=== PATIENT | female | born 1990 | race Hispanic/Latino ===

== ENCOUNTER 2017-05-31 12:55 | Emergency (ER) | payer OTHER ==
--- NOTE | 2017-05-31 14:09 | RAD ---
RIGHT FOREARM RADIOGRAPHS TWO VIEWS: Date: 05-31-17 Provided Clinical History: Right forearm pain. FINDINGS: There is no evidence of fracture or other acute osseous abnormality. If there is persistent clinical concern, conservative management and follow up imaging are advised. IMPRESSION: As above. POS: [facility]
--- NOTE | 2017-05-31 14:11 | RAD ---
RIGHT SHOULDER RADIOGRAPHS THREE VIEWS: Date: 05-31-17 Provided Clinical History: Right shoulder pain. FINDINGS: No evidence for fracture or other acute osseous abnormality. Subacromial space appears preserved. Acr omioclavicular and coracoclavicular distances appear normal. Visualized right lung field appears isabel r. The glenohumeral relationship appears normal. IMPRESSION: No evidence for acute osseous abnormality. If there is persistent clinical concern, conservative humza gement and follow up imaging are advised. POS: [facility]
== END 2017-05-31 14:55 | disposition home or self-care (01) ==
LOC: ERS 12:55
DX: S50.11XA Contusion of right forearm, initial encounter (principal); M25.511 Pain in right shoulder; F17.210 Nicotine dependence, cigarettes, uncomplicated; X50.1XXA Overexertion from prolonged static or awkward postures, initial encounter

== ENCOUNTER 2017-06-16 15:39 | Emergency (ER) | payer OTHER ==
[2017-06-16 16:46] LABS: Bilirubin Small (Negative); Blood, Urine Negative (Negative); Clarity CLOUDY (Clear); Glucose, Urine (Dipstick) Negative (Negative); Leukocyte Negative (Negative); Nitrite Negative (Negative); Protein, Urine (Dipstick) 30 mg/dL (Neg-Trace); Specific Gravity, Urine 1.043 (1.002-1.036); pH, Urine 6.5 (5.0-9.0)
[2017-06-16 16:48] LABS: Bacteria/HPF 1+ HPF (None Seen)
[2017-06-16 16:49] LABS: Pathc Cast-AUWi Flag 2.71 (0-2.49)
[2017-06-16 16:57] LABS: Hyaline Casts/LPF 4-6 HYALINE CAST LPF (0-3 Hyaline); RBC/HPF 0-3 HPF (0-3)
[2017-06-16 16:58] LABS: Other Casts/LPF None Seen LPF (0-3 Hyaline)
[2017-06-16 16:59] LABS: Pregnancy Test - Urine (BHCG) Negative (Negative); Pregu Control Background? CLEAR/WHITE (CLR/WHITE); Pregu Control Bar Appear? YES (CONTROL BAR); Specific Gravity 1.043 (1.002-1.036)
[2017-06-16 17:26] LABS: #Basophils 0.1 thou/uL (0.0-0.2); #Eosinphils 0.4 thou/uL (0.0-0.7); #Monocytes 0.4 thou/uL (0.11-0.59); #Neutrophils 5.2 thou/uL (1.40-6.50); %Basophils 0.7 % (0.0-1.0); %Eosinophils 4.1 % (0.0-10.0); %Lymphocytes 32.7 % (21.0-51.0); %Monocytes 4.6 % (0.0-10.0); Hemoglobin 13.2 g/dL (12.0-16.0); Mean Corpuscular HGB CONC 33.7 g/dL (32.0-36.0); Mean Corpuscular Hemoglobin 31.5 pg (27.0-31.0); Mean Corpuscular Volume 93.4 fl (81.0-99.0); Mean Platelet Volume 8.4 fL (7.4-10.4); Platelet Count 307 thou/uL (130-400); RBC Distribution Width 12.8 % (11.5-14.5); Red Blood Cell (RBC) Count 4.21 mill/uL (4.20-5.40)
--- NOTE | 2017-06-16 17:40 | RAD ---
ACUTE ABDOMINAL SERIES: 06/16/17 PROVIDED CLINICAL HISTORY: Diffuse abdominal pain. FINDINGS: The cardiac and mediastinal silhouette is within normal limits. Lungs appear clear. No pleural fluid or pneumothorax apparent. Supine and upright abdominal radiographs demonstrate a nonspecific bowel gas pattern. No evidence for pneumoperitoneum. No radiographically apparent urinary tract calculi. IMPRESSION: No evidence for an acute process. POS: [facility]
[2017-06-16] MEDS ORDERED: Famotidine/PF 20 mg/2ml Vial ONE (17:43)
[2017-06-16 17:47] LABS: ALT (SGPT) 11 U/L (8-55); AST (SGOT) 12 U/L (5-34); Albumin 4.2 g/dL (3.5-5.0); Alkaline Phosphatase 87 U/L (40-150); Anion Gap 14 mmol/L (10-20); BUN (Urea Nitrogen) 13 mg/dL (7.0-18.7); Bilirubin, Total 0.2 mg/dL (0.2-1.2); Calc. Creatinine Clearance 0 mL/min (70-130); Calcium 9.4 mg/dL (7.8-10.44); Carbon Dioxide 25 mmol/L (22-29); Chloride 102 mmol/L (98-107); Estimated GFR-MDRD Greater than 90; Globulin 3.3 g/dL (2.4-3.5); Glucose 90 mg/dL (70-105); Lipase 48 U/L (8-78); Potassium 3.6 mmol/L (3.5-5.1); Protein, Total 7.5 g/dL (6.0-8.3); Sodium 137 mmol/L (136-145)
[2017-06-16] MEDS ORDERED: Ketorolac Tromethamine 30 MG/ML VIAL ONE (18:37)
== END 2017-06-16 19:35 | disposition home or self-care (01) ==
LOC: ERS 15:39
DX: R10.13 Epigastric pain (principal); F17.210 Nicotine dependence, cigarettes, uncomplicated
CPT/HCPCS: 36415; 74022; 80053; 81003; 81015; 81025; 83690; 85025; 96361; 96372; 96374; 96375; J1885; S0028

== ENCOUNTER 2017-08-16 14:47 | Emergency (ER) | payer OTHER ==
[2017-08-16] MEDS ORDERED: Ketorolac Tromethamine 30 MG/ML VIAL ONE (16:44)
[2017-08-16 17:00] LABS: Bilirubin Small (Negative); Blood, Urine Negative (Negative); Clarity CLEAR (Clear); Glucose, Urine (Dipstick) Negative (Negative); Leukocyte Negative (Negative); Nitrite Negative (Negative); Protein, Urine (Dipstick) 30 mg/dL (Neg-Trace)
[2017-08-16 17:03] LABS: Bacteria/HPF Rare-Few HPF (None Seen); RBC/HPF 0-3 HPF (0-3)
[2017-08-16 17:08] LABS: Pathc Cast-AUWi Flag 3.92 (0-2.49); Pregnancy Test - Urine (BHCG) Negative (Negative); Pregu Control Background? CLEAR/WHITE (CLR/WHITE); Pregu Control Bar Appear? YES (CONTROL BAR); Specific Gravity 1.045 (1.002-1.036); Specific Gravity, Urine 1.045 (1.002-1.036)
[2017-08-16 17:19] LABS: Hyaline Casts/LPF 0-3 HYALINE CAST LPF (0-3 Hyaline); Other Casts/LPF None Seen LPF (0-3 Hyaline)
== END 2017-08-16 17:54 | disposition home or self-care (01) ==
LOC: ERS 14:47
DX: M54.5 Low back pain (principal); F17.210 Nicotine dependence, cigarettes, uncomplicated
CPT/HCPCS: 81003; 81015; 81025; 87086; 99283; J1885

== ENCOUNTER 2017-10-03 16:42 | Emergency (ER) | payer OTHER, SELFPAY ==
[2017-10-03] MEDS ORDERED: Ibuprofen 800 MG TAB ONE (17:39)
[2017-10-03] MEDS ORDERED: Adacel (T-DAP) 0.5 ML VIAL ONE (17:40)
[2017-10-03] MEDS ORDERED: Clindamycin 150 MG CAP ONE (17:42)
--- NOTE | 2017-10-03 18:41 | RAD ---
2 VIEWS LEFT HUMERUS: Date: 10/03/17 INDICATION: Fall with left arm pain. FINDINGS/IMPRESSION: No acute fracture or subluxation is evident. POS: [facility]
--- NOTE | 2017-10-03 18:41 | RAD ---
2 VIEWS LEFT ELBOW: Date: 10/03/17 INDICATION: Fall. COMPARISON: None. FINDINGS/IMPRESSION: No acute fracture or subluxation is evident. No joint capsular distention is noted. POS: [facility]
== END 2017-10-03 18:43 | disposition home or self-care (01) ==
LOC: ERS 16:42
DX: S59.902A Unspecified injury of left elbow, initial encounter (principal); L73.9 Follicular disorder, unspecified; L03.111 Cellulitis of right axilla; Z71.6 Tobacco abuse counseling; F17.210 Nicotine dependence, cigarettes, uncomplicated; N28.9 Disorder of kidney and ureter, unspecified; W01.0XXA Fall on same level from slipping, tripping and stumbling without subsequent striking against object, initial encounter; Y93.02 Activity, running
CPT/HCPCS: 90471; 90715; 99406

== ENCOUNTER 2017-11-03 17:16 | Emergency (ER) | payer SELFPAY ==
[2017-11-03 17:38] LABS: Bilirubin Negative (Negative); Blood, Urine Small (Negative); Clarity TURBID (Clear); Glucose, Urine (Dipstick) Negative (Negative); Leukocyte Moderate (Negative); Nitrite Positive (Negative); Protein, Urine (Dipstick) 30 mg/dL (Neg-Trace); Specific Gravity, Urine 1.025 (1.002-1.036); Urobilinogen 0.2 mg/dL (0.2-1.0)
[2017-11-03 17:39] LABS: Bacteria/HPF 4+ HPF (None Seen); Pregnancy Test - Urine (BHCG) Negative (Negative); Pregu Control Background? CLEAR/WHITE (CLR/WHITE); Pregu Control Bar Appear? YES (CONTROL BAR); Specific Gravity 1.025 (1.002-1.036)
[2017-11-03 17:40] LABS: Pathc Cast-AUWi Flag 26.34 (0-2.49); Yeast-AUWi Flag 108.7 (0-25.0)
[2017-11-03 17:53] LABS: Hyaline Casts/LPF NONE SEEN LPF (0-3 Hyaline); Other Casts/LPF None Seen LPF (0-3 Hyaline); RBC/HPF 0-3 HPF (0-3); Yeast-All Forms None Seen HPF (None Seen)
[2017-11-03] MEDS ORDERED: Ketorolac Tromethamine 60 MG/2 ML VIAL ONE (18:19)
--- NOTE | 2017-11-03 19:25 | CT ---
CT ABDOMEN AND PELVIS WITHOUT CONTRAST: 11/03/17 Multiple axial tomograms obtained through the abdomen and pelvis without IV enhancement. INDICATIONS: Right abdominal pain and right flank pain. Comparison made to CT abdomen and pelvis 01/13/17. FINDINGS: Lung bases clear. Liver, spleen, pancreas unremarkable. Adrenal glands unremarkable. Kidneys unremarkable. No hydroneph rosis identified. No evidence of urinary trace calculus. Small bowel loops appear normal. Appendix unremarkable. Colon unremarkable with prominent stool throu ghout the colon. Images through the pelvis reveal unremarkable appearing uterus. Possibly a right ovarian cyst measuri ng in the 1.5 to 2 cm range. There is a small amount of free fluid in the deep pelvis on the right. IMPRESSION: 1. Evidence of right ovarian cyst and free fluid in the right pelvis. 2. Otherwise no acute process. Correlate with serum HCG. POS: [facility]
== END 2017-11-03 19:01 | disposition home or self-care (01) ==
LOC: ERS 17:16
DX: N39.0 Urinary tract infection, site not specified (principal); F17.210 Nicotine dependence, cigarettes, uncomplicated; Z79.899 Other long term (current) drug therapy
CPT/HCPCS: 74176; 81003; 81015; 81025; 96372; J1885

== ENCOUNTER 2018-06-20 17:29 | Emergency (ER) | payer OTHER ==
[2018-06-20 19:14] LABS: Bilirubin Negative (Negative); Blood, Urine Negative (Negative); Clarity CLOUDY (Clear); Glucose, Urine (Dipstick) Negative (Negative); Leukocyte Large (Negative); Nitrite Negative (Negative); Protein, Urine (Dipstick) Trace mg/dL (Neg-Trace); Specific Gravity, Urine 1.028 (1.002-1.036); Urobilinogen 0.2 mg/dL (0.2-1.0); pH, Urine 5.5 (5.0-9.0)
[2018-06-20 19:15] LABS: Pregnancy Test - Urine (BHCG) Negative (Negative); Pregu Control Background? CLEAR/WHITE (CLR/WHITE); Pregu Control Bar Appear? YES (CONTROL BAR); Specific Gravity 1.028 (1.002-1.036)
[2018-06-20 19:17] LABS: Bacteria/HPF 1+ HPF (None Seen); Pathc Cast-AUWi Flag 1.59 (0-2.49)
[2018-06-20 19:29] LABS: Hyaline Casts/LPF NONE SEEN LPF (0-3 Hyaline); RBC/HPF 0-3 HPF (0-3)
[2018-06-20 19:30] LABS: #Eosinphils 0.2 thou/uL (0.0-0.7); #Lymphocytes 1.8 thou/uL (1.20-3.40); #Monocytes 0.4 thou/uL (0.11-0.59); #Neutrophils 7.8 thou/uL (1.40-6.50); %Basophils 0.2 % (0.0-1.0); %Eosinophils 2.2 % (0.0-10.0); %Lymphocytes 17.7 % (21.0-51.0); %Neutrophils 75.9 % (42.0-75.0); Hemoglobin 12.6 g/dL (12.0-16.0); Mean Corpuscular HGB CONC 32.1 g/dL (32.0-36.0); Mean Corpuscular Hemoglobin 30.6 pg (27.0-31.0); Mean Corpuscular Volume 95.5 fL (78.0-98.0); Mean Platelet Volume 7.3 fL (7.4-10.4); Platelet Count 459 thou/uL (130-400); Red Blood Cell (RBC) Count 4.11 mill/uL (4.20-5.40); White Blood Cell (WBC) Count 10.2 thou/uL (4.8-10.8)
[2018-06-20 19:53] LABS: ALT (SGPT) 11 U/L (8-55); AST (SGOT) 14 U/L (5-34); Albumin 4.4 g/dL (3.5-5.0); Alkaline Phosphatase 97 U/L (40-150); Anion Gap 17 mmol/L (10-20); BUN (Urea Nitrogen) 18 mg/dL (7.0-18.7); Bilirubin, Total Less than 0.2 mg/dL (0.2-1.2); Calc. Creatinine Clearance 0 mL/min (70-130); Calcium 9.7 mg/dL (7.8-10.44); Carbon Dioxide 27 mmol/L (22-29); Chloride 101 mmol/L (98-107); Estimated GFR-MDRD 80; Globulin 3.1 g/dL (2.4-3.5); Glucose 99 mg/dL (70-105); Lipase 82 U/L (8-78); Potassium 3.9 mmol/L (3.5-5.1); Protein, Total 7.5 g/dL (6.0-8.3); Sodium 141 mmol/L (136-145)
[2018-06-20] MEDS ORDERED: Lidocaine Viscous Sol 2% 15 ml UD Cup ONE (20:33)
[2018-06-20] MEDS ORDERED: Mag-Al 1200 mg/1200 mg/30 ML UDCUP ONE (20:33)
[2018-06-20] MEDS ORDERED: Morphine 4 MG/ML VIAL ONE (20:34)
[2018-06-20] MEDS ORDERED: Pantoprazole 40 MG VIAL ONE (20:34)
[2018-06-20] MEDS ORDERED: Ondansetron PF 4 MG/2 ML Vial ONE (20:34)
--- NOTE | 2018-06-20 20:50 | ULT ---
GALLBLADDER ULTRASOUND: INDICATIONS: Abdominal pain. COMPARISON: Gallbladder ultrasound from 04/02/2016. FINDINGS: No focal hepatic lesion or acute gallbladder pathology. The common duct is normal, measuring 4 mm in diameter. 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 IMPRESSION: No acute pathology identified in the right upper quadrant, by sonographic evaluation. POS: [facility]
--- NOTE | 2018-06-20 21:05 | RAD ---
CHEST TWO VIEWS: HISTORY: Pain. COMPARISON: 06/16/2017 FINDINGS: Normal cardiac silhouette. Pulmonary vessels and hilum are normal. Costophrenic angles are clear. No mass. No consolidation. No pneumothorax or osseous abnormality. IMPRESSION: No acute cardiopulmonary process. POS: [facility]
== END 2018-06-20 21:53 | disposition home or self-care (01) ==
LOC: ERS 17:29
DX: N39.0 Urinary tract infection, site not specified (principal); F17.210 Nicotine dependence, cigarettes, uncomplicated
CPT/HCPCS: 36415; 71046; 76705; 80053; 81003; 81015; 81025; 83690; 85025; 96361; 96374; 96375; C9113; J2270; J2405

== ENCOUNTER 2021-01-06 17:52 | Emergency (ER) | payer OTHER | END 2021-01-06 19:40 | disposition home or self-care (01) | LOC: ERS 17:52 | DX: T16.2XXA Foreign body in left ear, initial encounter (principal); F17.210 Nicotine dependence, cigarettes, uncomplicated | CPT/HCPCS: 69200 ==

== ENCOUNTER 2024-05-04 15:17 | Emergency (ER) | payer MEDICAID, OTHER ==
[2024-05-04 16:21] LABS: #Basophils 0.05 10x3/uL (0.0-0.2); #Eosinophils Less than 0.03 10x3/uL (0.0-0.7); %Basophils 0.5 % (0.0-1.0); %Lymphocytes 10.4 % (21.0-51.0); %Monocytes 2.5 % (0.0-10.0); %Neutrophils 86.4 % (42.0-75.0); Hematocrit 42.7 % (36.0-47.0); Hemoglobin 14.9 g/dL (12.0-16.0); Mean Corpuscular HGB CONC 34.9 g/dL (32.0-36.0); Mean Corpuscular Hemoglobin 31.8 pg (27.0-31.0); Mean Corpuscular Volume 91.2 fL (78.0-98.0); Mean Platelet Volume 10.9 fL (7.4-10.4); Platelet Count 367 10x3/uL (130-400); RBC Distribution Width 13.3 % (11.5-14.5); Red Blood Cell (RBC) Count 4.68 mill/uL (4.20-5.40)
[2024-05-04 16:37] LABS: ALT (SGPT) 7 U/L (8-55); AST (SGOT) 14 U/L (5-34); Albumin 4.2 g/dL (3.5-5.0); Alkaline Phosphatase 68 U/L (40-110); Anion Gap 17 mmol/L (10-20); BUN (Urea Nitrogen) 19 mg/dL (7.0-18.7); Bilirubin, Total 0.1 mg/dL (0.2-1.2); Calc. Creatinine Clearance 0 mL/min (70-130); Calcium 9.5 mg/dL (7.8-10.44); Carbon Dioxide 22 mmol/L (22-29); Chloride 104 mmol/L (98-107); Estimated GFR 103; Globulin 3.7 g/dL (2.4-3.5); Glucose 104 mg/dL (70-105); Lipase 41 U/L (8-78); Protein, Total 7.9 g/dL (6.0-8.3); Sodium 140 mmol/L (136-145)
[2024-05-04] MEDS ORDERED: Ondansetron ODT 4 MG TAB ONE (17:52)
[2024-05-04] MEDS ORDERED: Potassium Chloride 20 MEQ TAB ONE (17:52)
[2024-05-04 18:52] LABS: BHCG - Serum Negative (NEGATIVE); Pregs Control Background? CLEAR/WHITE (CLR/WHITE); Pregs Control Bar Appear? YES (CONTROL BAR)
[2024-05-04] MEDS ORDERED: Mag-Al 1200 mg/1200 mg/30 ML UDCUP ONE (20:07)
[2024-05-04 20:42] LABS: Bacteria/HPF None Seen HPF (None Seen); Bilirubin Negative (Negative); Blood, Urine Negative (Negative); CAUTI Indications for Culture Immunosuppressed; Clarity Clear (Clear); Glucose, Urine (Dipstick) Normal (Negative); Ketone, Urine 80 mg/dL (Negative); Leukocyte Negative Leu/uL (Negative); Nitrite Negative (Negative); Protein, Urine (Dipstick) 50 mg/dL (Neg-Trace); RBC/HPF 0-3 HPF (0-3); Urobilinogen Normal mg/dL (Less than 2); WBC/HPF 0-3 HPF (0-3)
[2024-05-04 20:44] LABS: Troponin I Less than 0.010 ng/mL (< 0.028)
[2024-05-04 20:48] LABS: Urine Culture Reflex Yes Yes
[2024-05-04 21:11] LABS: Specific Gravity, Urine 1.047 (1.002-1.036)
== END 2024-05-04 21:41 | disposition home or self-care (01) ==
LOC: ERS 15:17
DX: E86.0 Dehydration (principal); R11.2 Nausea with vomiting, unspecified; F17.210 Nicotine dependence, cigarettes, uncomplicated
CPT/HCPCS: 36415; 71045; 76705; 80053; 81001; 83690; 84484; 84703; 85025; 87086; 93005; Q0162